=== PATIENT | female | born 1955 | race Caucasian/White ===

== ENCOUNTER 2016-09-02 06:41 | Emergency (ER) | payer BC ==
[2016-09-02] MEDS ORDERED: HYDROmorphone 2 MG/ML 1 ML SYRINGE IM STA (07:37)
--- NOTE | 2016-09-02 08:31 | ED ---
General Adult HPI - General Chief complaint: Extremity Injury, Lower Stated complaint: Fall Time Seen by Provider: 09/02/16 07:13 Source: patient, RN notes reviewed, old records reviewed Mode of arrival: EMS - History of Present Illness Initial comments: This is a 60-year-old female the ER status post fall. Patient had a fall forward yesterday with right shoulder pain left knee pain and hit her face. No loss of consciousness, patient was intoxicated at the time. This time she still continuing continuing to complain of pain, swelling - Related Data Home Medications Medication Instructions Recorded Confirmed ALPRAZolam [Xanax] 1 mg PO DAILY PRN 09/02/16 09/02/16 Amitriptyline HCl [Elavil] 10 mg PO DAILY 09/02/16 09/02/16 Atenolol [Tenormin] 25 mg PO DAILY 09/02/16 09/02/16 Citalopram Hydrobromide [CeleXA] 10 mg PO DAILY 09/02/16 09/02/16 Multivitamins, Thera [Multivitamin 1 tab PO DAILY 09/02/16 09/02/16 (formulary)] oxyCODONE HCL 10 mg PO BID 09/02/16 09/02/16 Allergies Allergy/AdvReac Type Severity Reaction Status Date / Time No Known Allergies Allergy Verified 09/02/16 08:01 Review of Systems ROS Statement: Those systems with pertinent positive or pertinent negative responses have been documented in the HPI. ROS Other: All systems not noted in ROS Statement are negative. Past Medical History Past Medical History: Liver Disease History of Any Multi-Drug Resistant Organisms: None Reported Past Surgical History: Appendectomy, Bowel Resection, Section, Cholecystectomy Past Psychological History: Anxiety, Depression, PTSD Smoking Status: Never smoker Past Alcohol Use History: Daily Past Drug Use History: None Reported General Exam General appearance: alert, in no apparent distress Head exam: Present: atraumatic, normocephalic, normal inspection Eye exam: Present: normal appearance, PERRL, EOMI. Absent: scleral icterus, conjunctival injection, periorbital swelling ENT exam: Present: normal exam, mucous membranes moist Neck exam: Present: normal inspection. Absent: tenderness, meningismus, lymphadenopathy Respiratory exam: Present: normal lung sounds bilaterally. Absent: respiratory distress, wheezes, rales, rhonchi, stridor Cardiovascular Exam: Present: regular rate, normal rhythm, normal heart sounds. Absent: systolic murmur, diastolic murmur, rubs, gallop, clicks GI/Abdominal exam: Present: soft, normal bowel sounds. Absent: distended, tenderness, guarding, rebound, rigid Extremities exam: Present: normal inspection, full ROM, normal capillary refill. Absent: tenderness, pedal edema, joint swelling, calf tenderness Back exam: Present: normal inspection Neurological exam: Present: alert, oriented X3, CN II-XII intact Psychiatric exam: Present: normal affect, normal mood Skin exam: Present: warm, dry, intact, normal color. Absent: rash Course Vital Signs 09/02/16 09/02/16 06:46 09:00 Temperature 98.4 F Pulse Rate 75 84 Respiratory 18 20 Rate Blood Pressure 150/74 116/65 O2 Sat by Pulse 94 L Oximetry - Reevaluation(s) Reevaluation #1: 09/02/16 09:57 Spoke with orthopedics on-call, will place patient in the immobilizer and will follow-up in the office this week Medical Decision Making - Medical Decision Making 51-year-old female to the ER for evaluation status post fall, patient has horizontal patellar fracture will follow-up with orthopedics this week - Radiology Data Radiology results: report reviewed (CT brain and C-spine negative for traumatic injury CT facial was negative for traumatic injury x-ray right shoulder x-ray right knee x-ray chest and pelvis do show positive patellar fracture, horizontal ), image reviewed Disposition Clinical Impression: Left patella fracture, Fall Disposition: HOME SELF-CARE Condition: Good Instructions: Patellar Fracture (ED) Referrals: Tessie Duron DO [Doctor of Osteopathic Medicine] - 1-2 days
--- NOTE | 2016-09-02 08:33 | CT ---
EXAMINATION TYPE: CT brain keven hand con DATE OF EXAM: 09/02/2016 COMPARISON: NONE HISTORY: Fall CT DLP: Brain 1636.7, C-sp 413.2 mGycm Automated exposure control for dose reduction was used. TECHNIQUE: CT scan of the head and cervical spine are performed without contrast. FINDINGS: BRAIN: Central structures are midline. There is no evidence of hydrocephalus. No acute focal lesion, mass effect or midline shift is seen. I do not see evidence of intracranial blood. Visualized portions of the paranasal sinuses and mastoids are clear. There is no depressed skull frac ture. The zygomatic arches are intact. The pterygoid plates are intact. The orbital werner are intact. IMPRESSION: NORMAL CT SCAN OF THE BRAIN. CERVICAL SPINE: There is a 2.7 x 1.8 cm spiculated mass in the left upper lobe. There are mild emphys ematous changes throughout the visualized lung. Prevertebral soft tissues are normal. There is loss of the normal cervical lordosis. There is a minimal antegrade listhesis of C2 on C3 and C3 on C4. Alignment is otherwise normal. Atlantoaxial relationships are normal. There is degenerative disc disease and hypertrophic spondylosis at C5-6, C6-7 and C7-T1. There is unc overtebral joint disease at these levels. There is facet arthropathy at C2-3. No fractures are seen. IMPRESSION: 1. SPICULATED MASS IN THE LEFT UPPER LOBE. A PET/CT WOULD BE SUGGESTED. 2. NO ACUTE OSSEOUS LESION. 3. DEGENERATIVE CHANGE.
--- NOTE | 2016-09-02 08:34 | CT ---
EXAMINATION TYPE: CT facial bones wo con DATE OF EXAM: 09/02/2016 COMPARISON: NONE HISTORY: Fall. Contusion to Rt supraorbit and Rt maxilla regions. CT DLP: 564.[address] of the facial bones was performed in the axial and coronal planes. Bone and soft tissu e window settings are submitted. Mild right supraorbital soft tissue swelling. I do not see evidence for displaced facial bone fracture or depressed facial bone fracture. The globes are intact. Minimal mucosal thickening of the right maxillary sinus. No air-fluid levels identified. IMPRESSION: 1. No evidence for depressed or displaced facial bone fracture.
--- NOTE | 2016-09-02 08:52 | XR ---
EXAMINATION TYPE: XR chest 1V DATE OF EXAM: 09/02/2016 HISTORY: Pain. REFERENCE: NONE. FINDINGS: Heart size upper limits of normal. The lungs are clear. Pleural spaces are clear. IMPRESSION: BORDERLINE CARDIOMEGALY.
--- NOTE | 2016-09-02 08:53 | XR ---
EXAMINATION TYPE: XR knee complete LT DATE OF EXAM: 09/02/2016 CLINICAL HISTORY: pain TECHNIQUE: Three views of the left knee are obtained. COMPARISON: None. FINDINGS: Nondisplaced patellar fracture. Small to moderate hemarthrosis. No additional fractures basim ntified at this time. Tri-compartment joint spaces appear within normal limits. IMPRESSION: Nondisplaced patellar fracture with hemarthrosis. ICD 10 closed FRACTURE, INITIAL EVALUATION
--- NOTE | 2016-09-02 08:53 | XR ---
EXAMINATION TYPE: XR shoulder complete RT , 3 VIEWS DATE OF EXAM ORDERED: 09/02/2016 HISTORY: Pain. COMPARISON: None. FINDINGS: There are hypertrophic changes in the right AC joint. No fracture, dislocation or other acute osseous lesion is seen.. IMPRESSION: 1. NO ACUTE OSSEOUS LESION. 2. HYPERTROPHIC CHANGE, RIGHT AC JOINT.
--- NOTE | 2016-09-02 08:55 | XR ---
EXAMINATION TYPE: XR pelvis AP view , ONE VIEW DATE OF EXAM ORDERED: 09/02/2016 HISTORY: Pain. COMPARISON: None. FINDINGS: There are metallic skin sutures as well as surgical sutures projecting over the right anayeli jaydon region. Osseous structures about the pelvis are normal. No fractures are seen. There are degenerative changes in the hips, slightly worse on the left than the right. There is vascular calcification as well as p hleboliths within the pelvis. IMPRESSION: 1. NO ACUTE OSSEOUS LESION. 2. POSTSURGICAL CHANGE. 3. DEGENERATIVE CHANGE.
[2016-09-02 09:09] VITALS: RESP 20
[2016-09-02 10:06] VITALS: BP 140/71; PULSE 88; TEMP 98.6
== END 2016-09-02 10:19 | disposition home or self-care (01) ==
LOC: EC 06:41
DX: S82.002A Unspecified fracture of left patella, initial encounter for closed fracture (principal); F32.9 Major depressive disorder, single episode, unspecified; F41.9 Anxiety disorder, unspecified; F43.10 Post-traumatic stress disorder, unspecified; Z79.891 Long term (current) use of opiate analgesic; Z79.899 Other long term (current) drug therapy; W01.10XA Fall on same level from slipping, tripping and stumbling with subsequent striking against unspecified object, initial encounter
CPT/HCPCS: 96372 ×2; 99284 ×2; 71010; 72170; 73030; 73562; 72125; 70486; 70450; J1170